=== PATIENT | female | born 1935 | race Caucasian/White ===

== ENCOUNTER → 2018-07-12 | Outpatient (REF) | payer MEDICARE ==
[2017-01-27 08:31] VITALS: BMI 27.3
[~2018-07-12] MED LIST: ACE3 PO; ACET500T68 PO; ALL100 PO; ASPI-1471 PO; ATEN-1 PO; ATEN-65 PO; CEP500 PO; CHOL500025 PO; CLO75 PO; DIV500 PO; DOC100 PO; DOCU-416 PO; ESTR42.5 VG; FOL1 PO; FUR20 PO; GABA-549 PO; GEMF600T91 PO; INDO25 PO; IRO150 PO; ISOS30TA54 PO; LEVO-85 PO; LEVO250T37; LEVO50 PO; LEVO75TA68 PO; LEVO88TA43 PO; LOR5 PO; MELA1TAB2 PO; MELA3TAB45 PO; MELO-150 PO; METH1TAB58 PO; MINE1TAB6 PO; MULT-1335 PO; MULT-977 PO; NIT100 PO; NITR-105 PO; OMEG1CAP36 PO; OXY39T TD; OXYC-865 PO; OXYGENHOME INH; PAN20 PO; PHEN-530 PO; PHENA200 PO; POLY119P23 PO; POTA-53 PO; PRAV10TA46 PO; SOLI10TA8 PO; UBID200C21 PO; VER100 PO; VITA150T2 PO; [UNRECOGNIZED DRUG - CODE] PO
== END ==
LOC: ZZSTITCHES 12:27
PROVIDERS: ATTEND Physician Assistant
DX: N39.0 Urinary tract infection, site not specified (principal)
CPT/HCPCS: 87088

== ENCOUNTER 2019-05-01 13:47 | Emergency (ER) | payer MEDICARE ==
[2017-01-27 08:31] VITALS: Wt 77.1 kg
[~2019-05-01 13:47] MED LIST changes: -other
[2019-05-01 14:02] LABS: PLATELET COUNT, AUTOMATED 104 K/uL (150-450)
[2019-05-01] MEDS ORDERED: METOPROLOL TART 5 MG/5 ML VIAL IVP ONE (14:05)
--- NOTE | 2019-05-01 14:19 | ER Report ---
History and Physical Time Seen By MD: 14:00 HPI/ROS CHIEF COMPLAINT: Weakness HISTORY OF PRESENT ILLNESS: 84-year-old female comes emergency Department today with complaint of weakness. Patient recently seen and diagnosed with UTI start antibiotics today she's demonstrated stenoses felt very weak and couldn't on arrival EMS noted her to be hypertensive with a blood pressures of 240/140. Patient denies any chest pain nausea vomiting to suggest doesn't feel well. Patient denies nausea vomiting diarrhea fever chills as have some increased ur inary frequency denies any head or neck trauma is not confuses at her baseline mentation patient has no chest pain this time no cough fever chills or additional complaints noted REVIEW OF SYSTEMS: Respiratory: No cough, no dyspnea. Cardiovascular: No chest pain, no palpitations. Gastrointestinal: No vomiting, no abdominal pain. Musculoskeletal: No back pain. Remainder of the 14 system rev: Yes Allergies: Coded Allergies: Sulfa (Sulfonamide Antibiotics) (Verified Allergy, Mild, HIVES, 01/26/17) Home Meds Active Scripts Levofloxacin 500 Mg Tab (LEVAQUIN 500 MG TAB) 500 Mg Tablet, 500 MG PO QDAY@21, #3 TAB Prov:MANJU BRAVO DO 01/28/17 Atenolol (ATENOLOL) 25 Mg Tablet, 12.5 MG PO DAILY, #30 TAB Prov:MANJU BRAVO DO 01/28/17 Reported Medications Gabapentin (GABAPENTIN) 300 Mg Capsule, 900 MG PO TID, CAPSULE 01/26/17 Melatonin/Pyridoxine Hcl (B6) (MELATONIN 10 MG TABLET) 1 Each Tab.mphase, 1 EACH PO QHS 01/26/17 Pravastatin Sodium (PRAVASTATIN SODIUM) 10 Mg Tablet, 10 MG PO QDAY 01/26/17 Oxygen (OXYGEN) Inha, 2 L INH PRN, L 02/26/16 Ascorbic Acid/Multivit-Min (Emergen-C 1,000 mg Packet) 1,000 Mg Effpowdpkt, 1000 MG PO PRN 02/26/16 Acetaminophen (TYLENOL EXTRA STRENGTH) 500 Mg Tablet, 500 MG PO Q4H PRN for PAIN/HEADACHE, TAB 02/26/16 [place]-3/Dha/Epa/Lut/Zeaxanthin (ADVANCED EYE HEALTH SOFTGEL) 1 Each Capsule, 1 EACH PO BID, CAPSULE 02/26/16 Cholecalciferol (Vitamin D3) (VITAMIN D3) 5,000 Unit Tablet, 5000 UNIT PO DAILY 02/26/16 Isosorbide Mononitrate (ISOSORBIDE MONONITRATE ER) 30 Mg Tab.er.24h, 30 MG PO DAILY 02/26/16 Ubidecarenone (CO Q-10) 200 Mg Capsule, 200 MG PO DAILY, CAPSULE 02/26/16 Vitamin B Complex & Vit C No.4 (SUPER B COMPLEX) 150 Mg Tablet, 150 MG PO DAILY 02/26/16 Levothyroxine Sodium (SYNTHROID) 88 Mcg Tablet, 88 MCG PO QDAY 02/26/16 Docusate Sodium (COLACE) 100 Mg Capsule, 100 MG PO BID, CAPSULE 09/14/13 Estrogens, Conjugated 0.625 Mg/Ml Vag Cream (PREMARIN 0.625 MG/ML VAGINAL CR) 42.5 Gm Cream.appl, 0 VG PRN 09/13/13 Divalproex Sodium (Depakote) 500 Mg Tabcr, 500 MG PO QAM 01/21/13 Folic Acid (Folic Acid) 1 Mg Tab, 1 MG PO QDAY, 0 Refills 01/13/11 Reviewed Nurses Notes: Yes Old Medical Records Reviewed: Yes Hx Smoking: Yes (SMOKED 1 TO 1 PPD , STARTED AGE 18 AND QUIT 2000(48 YEARS)) Smoking Status: Former Smoker Exposure to Second Hand Smoke?: No Hx Substance Use Disorder: No Hx Alcohol Use: No Constitutional Vital Sign - Last 24 Hours 05/01/19 05/01/19 05/01/19 05/01/19 14:00 14:01 14:04 14:12 Pulse 90 Resp 9 B/P (MAP) 158/123 (135) 162/116 (131) 169/110 (129) Pulse Ox 93 05/01/19 05/01/19 05/01/19 05/01/19 14:15 14:30 14:35 14:40 Pulse 70 Resp 17 B/P (MAP) 174/112 (132) 167/120 (136) 179/108 (131) 183/103 (129) Pulse Ox 92 05/01/19 05/01/19 05/01/19 05/01/19 14:45 14:50 14:55 15:00 Pulse 59 56 Resp 26 20 B/P (MAP) 172/98 (122) 170/100 (123) 172/98 (122) 172/97 (122) Pulse Ox 94 89 05/01/19 05/01/19 05/01/19 05/01/19 15:05 15:10 15:15 15:20 Pulse 64 Resp 13 B/P (MAP) 176/98 (124) 164/95 (118) 182/106 (131) 184/118 (140) Pulse Ox 96 05/01/19 05/01/19 05/01/19 05/01/19 15:25 15:26 15:28 15:35 Temp 100.0 Pulse ??? 81 Resp 20 B/P (MAP) ???/??? (1665) 241/105 ???/??? (1665) Pulse Ox 90 O2 Delivery Room Air O2 Flow Rate 1.0 05/01/19 05/01/19 05/01/19 05/01/19 15:40 15:45 15:50 15:55 Pulse 58 Resp 18 B/P (MAP) ???/??? (1665) 198/103 (134) 192/107 (135) 190/108 (135) Pulse Ox 92 05/01/19 05/01/19 05/01/19 05/01/19 16:00 16:05 16:10 16:15 B/P (MAP) 182/106 (131) 187/113 (137) 190/106 (134) 191/112 (138) 05/01/19 05/01/19 16:20 16:25 Pulse 60 Resp 18 B/P (MAP) 191/101 (131) 205/112 (143) Pulse Ox 92 Physical Exam General Appearance: The patient is alert, has no immediate need for airway protection and no current signs of toxicity. [ ] Eyes: Pupils equal and round no injection. Respiratory: Chest is non tender, lungs are clear to auscultation. Cardiac: regular rate and rhythm [ ] Gastrointestinal: Abdomen is soft and non tender, no masses, bowel sounds normal. Musculoskeletal: Neck: Neck is supple and non tender. Extremities have full range of motion and are non tender. Skin: No rashes or lesions. [ ] DIFFERENTIAL DIAGNOSIS: After history and physical exam differential diagnosis was considered for UTI urosepsis myocardial infarction cardiac myopathy CHF COPD Medical Decision Making Data Points Result Diagram: 05/01/19 1340 05/01/19 1340 Laboratory Hematology Test 05/01/19 00:00 05/01/19 13:40 05/01/19 15:21 05/01/19 16:27 Lactate 2.0 mmol/L (0.7-2.1) Red Blood Count 5.26 M/uL (4.17-5.56) Mean Corpuscular Volume 92.1 fL (80.0-96.0) Mean Corpuscular Hemoglobin 30.7 pg (26.0-33.0) Mean Corpuscular Hemoglobin Concent 33.3 g/dL (32.0-36.0) Red Cell Distribution Width 14.3 % (11.5-14.5) Mean Platelet Volume 8.4 fL (7.2-11.1) Neutrophils (%) (Auto) 61.8 % (39.4-72.5) Lymphocytes (%) (Auto) 15.0 % (17.6-49.6) Monocytes (%) (Auto) 22.2 % (4.1-12.4) Eosinophils (%) (Auto) 0.3 % (0.4-6.7) Basophils (%) (Auto) 0.7 % (0.3-1.4) Nucleated RBC Relative Count (auto) 0.0 /100WBC Neutrophils # (Auto) 3.9 K/uL (2.0-7.4) Lymphocytes # (Auto) 1.0 K/uL (1.3-3.6) Monocytes # (Auto) 1.4 K/uL (0.3-1.0) Eosinophils # (Auto) 0.0 K/uL (0.0-0.5) Basophils # (Auto) 0.0 K/uL (0.0-0.1) Nucleated RBC Absolute Count (auto) 0.00 K/uL D-Dimer Quantitative (PE/DVT) 1.55 ug/ml (0-0.50) Sodium Level 141 mmol/L (137-145) Potassium Level 3.7 mmol/L (3.5-5.0) Chloride Level 106 mmol/L (98-107) Carbon Dioxide Level 25 mmol/L (22-31) Blood Urea Nitrogen 23 mg/dl (7-18) Creatinine 0.80 mg/dl (0.52-1.04) Glomerular Filtration Rate Calc > 60.0 Random Glucose 123 mg/dl (75-110) Calcium Level 9.3 mg/dl (8.4-10.2) Total Bilirubin 0.7 mg/dl (0.2-1.3) Aspartate Amino Transf (AST/SGOT) 40 U/L (0-35) Alanine Aminotransferase (ALT/SGPT) 36 U/L (0-56) Alkaline Phosphatase 95 U/L (0-126) B-Type Natriuretic Peptide 758 pg/ml (0-100) Total Protein 7.2 g/dl (6.3-8.2) Albumin 3.6 g/dl (3.5-5.0) Urine Color Yellow Urine Clarity Slightly-cloudy Urine pH 6.0 pH (4.8-9.5) Urine Specific [place] 1.025 Urine Protein 100 mg/dL (NEGATIVE) Urine Glucose (UA) Negative mg/dL (NEGATIVE) Urine Ketones >=80 mg/dL (NEGATIVE) Urine Blood Moderate (NEGATIVE) Urine Nitrite Positive (NEGATIVE) Urine Bilirubin Moderate (NEGATIVE) Urine Urobilinogen 0.2 mg/dL (0.2-1.9) Urine Leukocyte Esterase Moderate (NEGATIVE) Urine RBC 3 /HPF (0-2/HPF) Urine WBC 10 /HPF (0-5/HPF) Urine Squamous Epithelial Cells Many /LPF (NONE-FEW) Urine Bacteria Negative /HPF (NONE-FEW) Urine Mucus None /HPF (NONE-FEW) Troponin I 0.020 ng/ml Chemistry Test 05/01/19 00:00 05/01/19 13:40 05/01/19 15:21 05/01/19 16:27 Lactate 2.0 mmol/L (0.7-2.1) White Blood Count 6.3 k/uL (4.5-11.0) Red Blood Count 5.26 M/uL (4.17-5.56) Hemoglobin 16.1 g/dL (12.0-16.0) Hematocrit 48.5 % (34.0-47.0) Mean Corpuscular Volume 92.1 fL (80.0-96.0) Mean Corpuscular Hemoglobin 30.7 pg (26.0-33.0) Mean Corpuscular Hemoglobin Concent 33.3 g/dL (32.0-36.0) Red Cell Distribution Width 14.3 % (11.5-14.5) Platelet Count 104 K/uL (150-450) Mean Platelet Volume 8.4 fL (7.2-11.1) Neutrophils (%) (Auto) 61.8 % (39.4-72.5) Lymphocytes (%) (Auto) 15.0 % (17.6-49.6) Monocytes (%) (Auto) 22.2 % (4.1-12.4) Eosinophils (%) (Auto) 0.3 % (0.4-6.7) Basophils (%) (Auto) 0.7 % (0.3-1.4) Nucleated RBC Relative Count (auto) 0.0 /100WBC Neutrophils # (Auto) 3.9 K/uL (2.0-7.4) Lymphocytes # (Auto) 1.0 K/uL (1.3-3.6) Monocytes # (Auto) 1.4 K/uL (0.3-1.0) Eosinophils # (Auto) 0.0 K/uL (0.0-0.5) Basophils # (Auto) 0.0 K/uL (0.0-0.1) Nucleated RBC Absolute Count (auto) 0.00 K/uL D-Dimer Quantitative (PE/DVT) 1.55 ug/ml (0-0.50) Glomerular Filtration Rate Calc > 60.0 Calcium Level 9.3 mg/dl (8.4-10.2) Total Bilirubin 0.7 mg/dl (0.2-1.3) Aspartate Amino Transf (AST/SGOT) 40 U/L (0-35) Alanine Aminotransferase (ALT/SGPT) 36 U/L (0-56) Alkaline Phosphatase 95 U/L (0-126) B-Type Natriuretic Peptide 758 pg/ml (0-100) Total Protein 7.2 g/dl (6.3-8.2) Albumin 3.6 g/dl (3.5-5.0) Urine Color Yellow Urine Clarity Slightly-cloudy Urine pH 6.0 pH (4.8-9.5) Urine Specific [place] 1.025 Urine Protein 100 mg/dL (NEGATIVE) Urine Glucose (UA) Negative mg/dL (NEGATIVE) Urine Ketones >=80 mg/dL (NEGATIVE) Urine Blood Moderate (NEGATIVE) Urine Nitrite Positive (NEGATIVE) Urine Bilirubin Moderate (NEGATIVE) Urine Urobilinogen 0.2 mg/dL (0.2-1.9) Urine Leukocyte Esterase Moderate (NEGATIVE) Urine RBC 3 /HPF (0-2/HPF) Urine WBC 10 /HPF (0-5/HPF) Urine Squamous Epithelial Cells Many /LPF (NONE-FEW) Urine Bacteria Negative /HPF (NONE-FEW) Urine Mucus None /HPF (NONE-FEW) Troponin I 0.020 ng/ml Coagulation Test 05/01/19 13:40 D-Dimer Quantitative (PE/DVT) 1.55 ug/ml Urinalysis Test 05/01/19 15:21 Urine Color Yellow Urine Clarity Slightly-cloudy Urine pH 6.0 pH (4.8-9.5) Urine Specific [place] 1.025 Urine Protein 100 mg/dL (NEGATIVE) Urine Glucose (UA) Negative mg/dL (NEGATIVE) Urine Ketones >=80 mg/dL (NEGATIVE) Urine Blood Moderate (NEGATIVE) Urine Nitrite Positive (NEGATIVE) Urine Bilirubin Moderate (NEGATIVE) Urine Urobilinogen 0.2 mg/dL (0.2-1.9) Urine Leukocyte Esterase Moderate (NEGATIVE) Urine RBC 3 /HPF (0-2/HPF) Urine WBC 10 /HPF (0-5/HPF) Urine Squamous Epithelial Cells Many /LPF (NONE-FEW) Urine Bacteria Negative /HPF (NONE-FEW) Urine Mucus None /HPF (NONE-FEW) ED Course/Re-evaluation ED Course 84-year-old female here with hypertensive emergency troponin markers are elevated EKG showed inferior and precordial ST depressions consistent with probable and STEMI I will send her to [facility] for definitive cardiology care Decision to Disposition Date: May 01, 2019 Decision to Disposition Time: 17:17 Depart Departure Latest Vital Signs Vital Signs Date Time Temp Pulse Resp B/P (MAP) Pulse Ox O2 Delivery O2 Flow Rate FiO2 05/01/19 16:25 60 18 205/112 (143) 92 05/01/19 15:28 1.0 05/01/19 15:26 100.0 Room Air Impression: Primary Impression: Non-STEMI (non-ST elevated myocardial infarction) Additional Impression: Hypertensive emergency Condition: Improved Disposition: [facility] TO [facility] Referrals: SUARJ TOMLINSON MD (PCP) Problem Qualifiers ZAIN SHORE MD May 01, 2019 14:19
--- NOTE | 2019-05-01 14:30 | EKG ---
[facility] PATIENT NAME: ESTELLA IRELAND : [id number] MR: [id number] V: [id number] EXAM DATE: ORDERING PHYSICIAN: ZAIN SHORE TECHNOLOGIST: VIVIAN Grimes Reason : CP Blood Pressure : / mmHG Vent. Rate : 099 BPM Atrial Rate : 099 BPM P-R Int : 136 ms QRS Dur : 128 ms QT Int : 368 ms P-R-T Axes : 062 028 086 degrees QTc Int : 472 ms Sinus rhythm with premature atrial complexes Biatrial enlargement Left bundle branch block Accentuated ST depression in the inferolateral leads Abnormal ECG Confirmed by SERA HWANG ([id number]) on 05/01/2019 4:22:59 PM Referred By: MONE Confirmed By:SERA HWANG
--- NOTE | 2019-05-01 15:06 | RADIOLOGY IMAGING REPORT ---
FACILITY: [facility] - [place] PATIENT NAME: Cecilia Craig : 1935 MR: [id number] V: [id number] EXAM DATE: ORDERING PHYSICIAN: ZAIN SHORE TECHNOLOGIST: Location: [facility] Patient: Cecilia Craig : 1935 Visit/Account:[id number] Date of Sevice: 05/01/2019 EXAMINATION: PA and Lateral Chest 05/01/2019 1:48 PM HISTORY: sob COMPARISON: 09/21/2014 FINDINGS: Cardiomediastinal contours: Stable heart size. Tortuosity of the aorta again shown. Lungs and pleura: Lungs are mildly hyper voluminous. Vasculature is unchanged. No parenchymal infil trate or consolidation. Pleural spaces appear clear. Densities over the lung bases due to costal ca rtilage. Bones/soft tissues: Scoliotic spinal curvature. Bony degenerative changes. IMPRESSION: No acute cardiopulmonary abnormality. Report Dictated By: Da Holbrook MD at 05/01/2019 2:45 PM Report E-Signed By: Da Holbrook MD at 05/01/2019 3:01 PM [id number]
[2019-05-01] MEDS ORDERED: cloNIDine HCL 0.1 MG TAB PO ONE (16:30)
--- NOTE | 2019-05-01 16:43 | RADIOLOGY IMAGING REPORT ---
FACILITY: [facility] - [place] PATIENT NAME: Cecilia Craig : 1935 MR: [id number] V: [id number] EXAM DATE: ORDERING PHYSICIAN: ZAIN SHORE TECHNOLOGIST: Location: [facility] Patient: Cecilia Craig : 1935 Visit/Account:[id number] Date of Sevice: 05/01/2019 EXAMINATION: CTA of the chest with IV contrast HISTORY: Shortness of breath. Mid back pain. Malaise. TECHNIQUE: Pulmonary embolus protocol - Thin axial CT images of the chest were obtained with IV con trast during maximal pulmonary arterial opacification. Reconstruction of the source data includes mul tiplanar 2D coronal and sagittal reconstructed images, and 3D coronal and sagittal MIP images. Repres entative images have been stored on PACS. One of the following dose optimization techniques was utilized in the performance of this exam: Autom ated exposure control; adjustment of the mA and/or kV according to the patient's size; or use of an i terative reconstruction technique. Specific details can be referenced in the facility's radiology C T exam operational policy. Contrast: 75 mL of IV [id number]. COMPARISON: None. FINDINGS: Pulmonary arteries: The pulmonary arteries are well opacified, without suspicious filling defect. Heart, aorta, and great vessels: Mild ectasia of the ascending thoracic aorta measuring 3.8 cm. The thoracic aorta is mildly tortuous. Vascular calcifications including coronary artery calcifications. Mild cardiac enlargement. No pericardial effusion. Lungs and pleura: Mild scarring or atelectasis at the lung bases. No suspicious focal consolidation. No pleural effusion or pneumothorax. The central airways are patent. Mediastinum and haritha: Negative. Visualized upper abdomen: Cholelithiasis with multiple small stones layering in the dependent gallbl adder. Scattered colonic diverticulosis along the visualized splenic flexure of the colon. Partially imaged [employer] shunt catheter tubing in the right abdomen. Chest wall: [employer] shunt catheter tracks along the soft tissues of the anterior right chest wall. Bones: Mild thoracolumbar scoliosis with chronic multilevel degenerative changes throughout the spin e. No acute osseous findings. IMPRESSION: 1. No evidence of pulmonary embolism. 2. No other acute findings in the chest. Mild scarring or atelectasis at the lung bases. 3. Cholelithiasis. Report Dictated By: Blayne Bush MD at 05/01/2019 4:28 PM Report E-Signed By: Blayne Bush MD at 05/01/2019 4:38 PM WSN:[id number]
[2019-05-01 17:20] VITALS: BP 196/121
== END 2019-05-01 18:06 | disposition short-term general hospital (02) ==
LOC: ER 13:52
DX: I21.4 Non-ST elevation (NSTEMI) myocardial infarction (principal)
CPT/HCPCS: 71046; 71275; 81001; 83605; 83880; 84484; 85025; 85379; 87040; 87088; 93005; 96374; 99285; A4353; A9270; 82040; 82247; 82310; 82374; 82435; 82565; 82947; 84075; 84132; 84155; 84295; 84450; 84460; 84520

== ENCOUNTER → 2019-05-01 | Outpatient (CLI) | payer MEDICARE ==
[2017-01-27 08:31] VITALS: BMI 27.3
[~2019-05-01] MED LIST changes: +other
== END ==
LOC: AMB 17:56
PROVIDERS: ATTEND Nurse Practitioner
DX: I21.4 Non-ST elevation (NSTEMI) myocardial infarction (principal)

== ENCOUNTER → 2019-05-01 | Outpatient (CLI) | payer MEDICARE ==
[2017-01-27 08:31] VITALS: BMI 27.3
== END ==
LOC: AMB 13:13
PROVIDERS: ATTEND Nurse Practitioner
DX: R53.83 Other fatigue (principal); I49.9 Cardiac arrhythmia, unspecified
CPT/HCPCS: A0425; A0427

== ENCOUNTER 2019-05-06 13:16 | Emergency (ER) | payer MEDICARE ==
[2017-01-27 08:31] VITALS: Wt 69.9 kg
[~2019-05-06 13:16] MED LIST changes: -other
--- NOTE | 2019-05-06 13:19 | ER Report ---
History and Physical Time Seen By MD: 13:18 HPI/ROS CHIEF COMPLAINT: Not feeling well HISTORY OF PRESENT ILLNESS: Dyspnea. Female who presents to the emergency department via EMS for "not feeling well". Patient was sent to [facility] [place] 5 days ago for an STEMI. Patient's states they just ran some tests, no interventions, her son who is at the bedside states that she was released prematurely, spine home for a couple of days and has not been feeling well, patient states that she just does not feel well. She denies chest pain or shortness of breath, she does feel fatigued she also states that she has not had a bowel movement since she was in the hospital. She also states that she is currently being treated for a urinary tract infection she is currently taking Levaquin. No headaches or rashes or fevers although she states that she did feel warm today. REVIEW OF SYSTEMS: Constitutional: As above. Eyes: No discharge. ENT: No sore throat. Cardiovascular: As above. Respiratory: No cough, no shortness of breath. Gastrointestinal: No abdominal pain, no vomiting. Genitourinary: As above. Musculoskeletal: No back pain. Skin: No rashes. Neurological: No headache. Allergies: Coded Allergies: Sulfa (Sulfonamide Antibiotics) (Verified Allergy, Mild, HIVES, 01/26/17) Home Meds Active Scripts [other] No Conflict Check Patient's Primary Care Provider: Dr. vIonne Aguilar, Institutional Provider conducted the [id number] encounter. Electronic Undersigning Physician Certifies Home Health. I certify that the patient has been under my care and that I had a [id number] encounter that meets the physician wgqa-ml-sapi encounter requirements with this patient. This patient is home-bound due to safety issues and continues to require assistance with ADL's. I certify that based on my findings, that Nursing, Aides and the following Home Health services are medically necessary: Prov:LITO BALES SHIPPING AND RECEIVING SPECIALIST- 05/06/19 Levofloxacin 500 Mg Tab (LEVAQUIN 500 MG TAB) 500 Mg Tablet, 500 MG PO QDAY@21, #3 TAB Prov:MANJU BRAVO DO 01/28/17 Atenolol (ATENOLOL) 25 Mg Tablet, 12.5 MG PO DAILY, #30 TAB Prov:MANJU BRAVO DO 01/28/17 Reported Medications Gabapentin (GABAPENTIN) 300 Mg Capsule, 900 MG PO TID, CAPSULE 01/26/17 Melatonin/Pyridoxine Hcl (B6) (MELATONIN 10 MG TABLET) 1 Each Tab.mphase, 1 EACH PO QHS 01/26/17 Pravastatin Sodium (PRAVASTATIN SODIUM) 10 Mg Tablet, 10 MG PO QDAY 01/26/17 Oxygen (OXYGEN) Inha, 2 L INH PRN, L 02/26/16 Ascorbic Acid/Multivit-Min (Emergen-C 1,000 mg Packet) 1,000 Mg Effpowdpkt, 1000 MG PO PRN 02/26/16 Acetaminophen (TYLENOL EXTRA STRENGTH) 500 Mg Tablet, 500 MG PO Q4H PRN for PAIN/HEADACHE, TAB 02/26/16 [place]-3/Dha/Epa/Lut/Zeaxanthin (ADVANCED EYE HEALTH SOFTGEL) 1 Each Capsule, 1 EACH PO BID, CAPSULE 02/26/16 Cholecalciferol (Vitamin D3) (VITAMIN D3) 5,000 Unit Tablet, 5000 UNIT PO DAILY 02/26/16 Isosorbide Mononitrate (ISOSORBIDE MONONITRATE ER) 30 Mg Tab.er.24h, 30 MG PO DA KATIE 02/26/16 Ubidecarenone (CO Q-10) 200 Mg Capsule, 200 MG PO DAILY, CAPSULE 02/26/16 Vitamin B Complex & Vit C No.4 (SUPER B COMPLEX) 150 Mg Tablet, 150 MG PO DAILY 02/26/16 Levothyroxine Sodium (SYNTHROID) 88 Mcg Tablet, 88 MCG PO QDAY 02/26/16 Docusate Sodium (COLACE) 100 Mg Capsule, 100 MG PO BID, CAPSULE 09/14/13 Estrogens, Conjugated 0.625 Mg/Ml Vag Cream (PREMARIN 0.625 MG/ML VAGINAL CR) 42.5 Gm Cream.appl, 0 VG PRN 09/13/13 Divalproex Sodium (Depakote) 500 Mg Tabcr, 500 MG PO QAM 01/21/13 Folic Acid (Folic Acid) 1 Mg Tab, 1 MG PO QDAY, 0 Refills 01/13/11 Past Medical/Surgical History The patient has a past medical and surgical history of hydrocephalus, TIAs, migraines, myocardial infarction, stents placed, irregular heartbeat, hypertension, hypercholesterolemia, spoke to use oxygen 24 hours a day, colonoscopy, hemorrhoidectomy hepatitis, jaundice, urinary urgency, UTIs, no pus, arthritis, partial dentures, macular degeneration, wears glasses, hypothyroidism, shingles, COATER SMOKING PIPE shunt, appendectomy, cystoscopy, tubal ligation, foot surgery, hip surgery, right hip total replacement. Reviewed Nurses Notes: Yes Hx Smoking: Yes (SMOKED 1/4 TO 1/2 PPD , STARTED AGE 18 AND QUIT 2000(48 YEARS)) Smoking Status: Former Smoker Exposure to Second Hand Smoke?: No Hx Substance Use Disorder: No Hx Alcohol Use: No Constitutional Vital Sign - Last 24 Hours 05/06/19 05/06/19 05/06/19 05/06/19 13:16 13:18 13:19 13:26 Temp 98.8 Pulse 82 92 Resp 18 B/P (MAP) 142/109 142/109 (120) Pulse Ox 88 O2 Delivery Room Air O2 Flow Rate 1.0 05/06/19 05/06/19 05/06/19 05/06/19 13:30 13:36 13:56 14:00 Pulse 85 86 Resp 12 17 B/P (MAP) 149/89 (109) 140/90 (107) Pulse Ox 94 94 05/06/19 05/06/19 05/06/19 05/06/19 14:16 14:21 14:30 14:41 Pulse 81 78 78 Resp 13 28 39 B/P (MAP) 147/91 (109) Pulse Ox 94 93 94 05/06/19 05/06/19 05/06/19 05/06/19 15:00 15:01 15:21 15:30 Pulse 77 74 Resp 22 19 B/P (MAP) 135/95 (108) 140/94 (109) Pulse Ox 95 96 05/06/19 05/06/19 05/06/19 05/06/19 15:41 16:00 16:01 16:02 Pulse 77 72 78 Resp 36 16 17 B/P (MAP) 150/96 (114) Pulse Ox 96 97 97 05/06/19 05/06/19 05/06/19 05/06/19 16:22 16:30 16:42 18:28 Pulse 73 81 85 Resp 16 25 16 B/P (MAP) 141/88 (105) 148/88 (108) Pulse Ox 97 95 92 O2 Delivery Nasal Cannula O2 Flow Rate 2 Physical Exam General Appearance: The patient is alert, has no immediate need for airway protection and no signs of toxicity. Eyes: Pupils equal and round no pallor or injection. ENT, Mouth: Mucous membranes are moist. Respiratory: There are no retractions, lungs are clear to auscultation. Cardiovascular: Regular rate and rhythm. Faint systolic murmur, no clicks or rubs. Gastrointestinal: Abdomen is soft and non tender, no masses, bowel sounds normal. Neurological: Alert and oriented 4. Moving all extremities. Following all commands. No focal neuro deficits. Skin: Warm and dry, no rashes. Musculoskeletal: Neck is supple non tender. Extremities are nontender, nonswollen and have full range of motion. DIFFERENTIAL DIAGNOSIS: After history and physical exam differential diagnosis was considered for an STEMI, myocardial infarction, sepsis, urinary tract infection, urosepsis, constipation. Medical Decision Making Data Points Result Diagram: 05/06/19 1344 05/06/19 1344 Laboratory Hematology Test 05/06/19 13:44 05/06/19 14:20 Red Blood Count 4.93 M/uL (4.17-5.56) Mean Corpuscular Volume 92.3 fL (80.0-96.0) Mean Corpuscular Hemoglobin 30.8 pg (26.0-33.0) Mean Corpuscular Hemoglobin Concent 33.4 g/dL (32.0-36.0) Red Cell Distribution Width 13.8 % (11.5-14.5) Mean Platelet Volume 8.8 fL (7.2-11.1) Neutrophils (%) (Auto) 74.6 % (39.4-72.5) Lymphocytes (%) (Auto) 13.0 % (17.6-49.6) Monocytes (%) (Auto) 11.5 % (4.1-12.4) Eosinophils (%) (Auto) 0.4 % (0.4-6.7) Basophils (%) (Auto) 0.5 % (0.3-1.4) Nucleated RBC Relative Count (auto) 0.0 /100WBC Neutrophils # (Auto) 5.0 K/uL (2.0-7.4) Lymphocytes # (Auto) 0.9 K/uL (1.3-3.6) Monocytes # (Auto) 0.8 K/uL (0.3-1.0) Eosinophils # (Auto) 0.0 K/uL (0.0-0.5) Basophils # (Auto) 0.0 K/uL (0.0-0.1) Nucleated RBC Absolute Count (auto) 0.00 K/uL Prothrombin Time 14.7 seconds (12.0-14.4) Prothromb Time International Ratio 1.14 Activated Partial Thromboplast Time 29 seconds (23-35) Sodium Level 143 mmol/L (137-145) Potassium Level 3.7 mmol/L (3.5-5.0) Chloride Level 108 mmol/L (98-107) Carbon Dioxide Level 26 mmol/L (22-31) Blood Urea Nitrogen 21 mg/dl (7-18) Creatinine 0.90 mg/dl (0.52-1.04) Glomerular Filtration Rate Calc 59.7 Random Glucose 127 mg/dl (75-110) Calcium Level 9.5 mg/dl (8.4-10.2) Total Bilirubin 0.6 mg/dl (0.2-1.3) Aspartate Amino Transf (AST/SGOT) 32 U/L (0-35) Alanine Aminotransferase (ALT/SGPT) 34 U/L (0-56) Alkaline Phosphatase 62 U/L (0-126) Troponin I < 0.012 ng/ml Total Protein 6.8 g/dl (6.3-8.2) Albumin 3.5 g/dl (3.5-5.0) Urine Color Jazmin Urine Clarity Slightly-cloudy Urine pH 5.0 pH (4.8-9.5) Urine Specific [place] 1.025 Urine Protein 30 mg/dL (NEGATIVE) Urine Glucose (UA) Negative mg/dL (NEGATIVE) Urine Ketones Trace mg/dL (NEGATIVE) Urine Blood Moderate (NEGATIVE) Urine Nitrite Negative (NEGATIVE) Urine Bilirubin Negative (NEGATIVE) Urine Urobilinogen 0.2 mg/dL (0.2-1.9) Urine Leukocyte Esterase Trace (NEGATIVE) Urine RBC 81 /HPF (0-2/HPF) Urine WBC 37 /HPF (0-5/HPF) Urine Squamous Epithelial Cells Many /LPF (NONE-FEW) Urine Transitional Epithelial Cells Moderate /LPF (NONE-FEW) Urine Bacteria Few /HPF (NONE-FEW) Urine Mucus Few /HPF (NONE-FEW) Chemistry Test 05/06/19 13:44 05/06/19 14:20 White Blood Count 6.8 k/uL (4.5-11.0) Red Blood Count 4.93 M/uL (4.17-5.56) Hemoglobin 15.2 g/dL (12.0-16.0) Hematocrit 45.5 % (34.0-47.0) Mean Corpuscular Volume 92.3 fL (80.0-96.0) Mean Corpuscular Hemoglobin 30.8 pg (26.0-33.0) Mean Corpuscular Hemoglobin Concent 33.4 g/dL (32.0-36.0) Red Cell Distribution Width 13.8 % (11.5-14.5) Platelet Count 188 K/uL (150-450) Mean Platelet Volume 8.8 fL (7.2-11.1) Neutrophils (%) (Auto) 74.6 % (39.4-72.5) Lymphocytes (%) (Auto) 13.0 % (17.6-49.6) Monocytes (%) (Auto) 11.5 % (4.1-12.4) Eosinophils (%) (Auto) 0.4 % (0.4-6.7) Basophils (%) (Auto) 0.5 % (0.3-1.4) Nucleated RBC Relative Count (auto) 0.0 /100WBC Neutrophils # (Auto) 5.0 K/uL (2.0-7.4) Lymphocytes # (Auto) 0.9 K/uL (1.3-3.6) Monocytes # (Auto) 0.8 K/uL (0.3-1.0) Eosinophils # (Auto) 0.0 K/uL (0.0-0.5) Basophils # (Auto) 0.0 K/uL (0.0-0.1) Nucleated RBC Absolute Count (auto) 0.00 K/uL Prothrombin Time 14.7 seconds (12.0-14.4) Prothromb Time International Ratio 1.14 Activated Partial Thromboplast Time 29 seconds (23-35) Glomerular Filtration Rate Calc 59.7 Calcium Level 9.5 mg/dl (8.4-10.2) Total Bilirubin 0.6 mg/dl (0.2-1.3) Aspartate Amino Transf (AST/SGOT) 32 U/L (0-35) Alanine Aminotransferase (ALT/SGPT) 34 U/L (0-56) Alkaline Phosphatase 62 U/L (0-126) Troponin I < 0.012 ng/ml Total Protein 6.8 g/dl (6.3-8.2) Albumin 3.5 g/dl (3.5-5.0) Urine Color Jazmin Urine Clarity Slightly-cloudy Urine pH 5.0 pH (4.8-9.5) Urine Specific [place] 1.025 Urine Protein 30 mg/dL (NEGATIVE) Urine Glucose (UA) Negative mg/dL (NEGATIVE) Urine Ketones Trace mg/dL (NEGATIVE) Urine Blood Moderate (NEGATIVE) Urine Nitrite Negative (NEGATIVE) Urine Bilirubin Negative (NEGATIVE) Urine Urobilinogen 0.2 mg/dL (0.2-1.9) Urine Leukocyte Esterase Trace (NEGATIVE) Urine RBC 81 /HPF (0-2/HPF) Urine WBC 37 /HPF (0-5/HPF) Urine Squamous Epithelial Cells Many /LPF (NONE-FEW) Urine Transitional Epithelial Cells Moderate /LPF (NONE-FEW) Urine Bacteria Few /HPF (NONE-FEW) Urine Mucus Few /HPF (NONE-FEW) Coagulation Test 05/06/19 13:44 Prothrombin Time 14.7 seconds Prothromb Time International Ratio 1.14 Activated Partial Thromboplast Time 29 seconds Urinalysis Test 05/06/19 14:20 Urine Color Jazmin Urine Clarity Slightly-cloudy Urine pH 5.0 pH (4.8-9.5) Urine Specific [place] 1.025 Urine Protein 30 mg/dL (NEGATIVE) Urine Glucose (UA) Negative mg/dL (NEGATIVE) Urine Ketones Trace mg/dL (NEGATIVE) Urine Blood Moderate (NEGATIVE) Urine Nitrite Negative (NEGATIVE) Urine Bilirubin Negative (NEGATIVE) Urine Urobilinogen 0.2 mg/dL (0.2-1.9) Urine Leukocyte Esterase Trace (NEGATIVE) Urine RBC 81 /HPF (0-2/HPF) Urine WBC 37 /HPF (0-5/HPF) Urine Squamous Epithelial Cells Many /LPF (NONE-FEW) Urine Transitional Epithelial Cells Moderate /LPF (NONE-FEW) Urine Bacteria Few /HPF (NONE-FEW) Urine Mucus Few /HPF (NONE-FEW) EKG/Imaging EKG Interpretation 12 lead EKG: Time of EKG 1355. Rhythm: Sinus rhythm, ventricular rate 79 BPM. [place]: Left axis deviation. QRS: Left bundle branch block. ST segments: Left bundle branch block, no ST depression on current EKG. Improved EKG when compared to the 05/01/2019 EKG the depression in lead 3, weight 2 aVF has resolved. Imaging PATIENT NAME: Cecilia Craig : 1935 MR: [id number] V: [id number] EXAM DATE: ORDERING PHYSICIAN: LITO BALES TECHNOLOGIST: Location: [facility] [place] Patient: Cecilia Craig : 1935 Visit/Account:[id number] Date of Sevice: 05/06/2019 KUB SINGLE VIEW ABDOMEN, CHEST SINGLE AP HISTORY: Not feeling well. History of recent non-STEMI cardiac event. COMPARISON: Chest x-ray May 01, 2019. CT abdomen pelvis May 01, 2019. FINDINGS: Cardiomediastinal contours: The heart is enlarged. Lungs and pleura: There is hyperinflation of the lungs but no definitive pleural effusions are identified. There is no congestive heart failure. There is prominence the central pulmonary vessels. Bones/soft tissues: Diffuse osteopenia without findings of a fracture. ABDOMEN: There is a fair amount of fecal material throughout mildly dilated loops of colon. There is gas and feces in the rectum. The findings could represent mild constipation. Bilateral hip replacements are identified. There is diffuse osteopenia but no fracture is seen. Discogenic degenerative changes throughout the lumbar spine. Right upper quadrant: There is a calcified gallstone in the right upper quadrant . This was noted on the previous CT scan. IMPRESSION: 1. Cardiomegaly with hyperinflation of the lungs and prominence the central pulmonary vessels. No findings of an infiltrate. 2. There is a fair amount of fecal chest throughout the colon. This raises the possibility of constipation. 3. Cholelithiasis. 4. Osteopenia without findings of an acute fracture. Bilateral total hip replacements. Report Dictated By: Sujit Elizabeth MD at 05/06/2019 2:11 PM Report E-Signed By: Sujit Elizabeth MD at 05/06/2019 2:16 PM WSN:[id number] ED Course/Re-evaluation Clinical Indication for ER IV: IV Access ED Course The patient was admitted to room. A history and physical obtained. Differential diagnoses were considered. An IV was started. A CBC, CMP and troponin were obtained. Laboratory studies unremarkable, negative troponin. EKG showing significant improvement from the patient's EKG 5 days ago. KUB showing constipation, no acute findings noted on chest x-ray. Urine showing continued urinary tract infection, we'll continue the patient on the Levaquin that she was prescribed. Urine sent for culture. I did speak with the hospitalist, Dr. diane gar lets he still, as the patient's laboratory studies, EKG are improving, no other acute findings other than a urinary tract infection were identified, and admission is not possible at this time. We are doing only can to assist her with home health care and she was given a prescripti trying to assist patient with setting up home health care, I have written an order for this. I did review this with the patient, though she is disappointed that she will not be admitted the hospital she does understand. I have written an order for home health, [facility] has been contacted, notes been faxed along with the order of her we did not have a response today, the patient will go home, her son will assist her this evening, and [facility] will hopefully contact her tomorrow, she will follow up with Dr. Aguilar. She'll also return to the ER for any other concerns or worsening symptoms. Patient exposed understanding Decision to Disposition Date: May 06, 2019 Decision to Disposition Time: 18:05 Depart Departure Latest Vital Signs Vital Signs Date Time Temp Pulse Resp B/P (MAP) Pulse Ox O2 Delivery O2 Flow Rate FiO2 05/06/19 18:28 85 16 148/88 (108) 92 Nasal Cannula 2 05/06/19 13:18 98.8 Impression: Primary Impression: Weakness Additional Impressions: UTI (urinary tract infection) Constipation Status post non-ST elevation myocardial infarction (NSTEMI) Condition: Improved Disposition: HOME OR SELF-CARE Referrals: IVONNE AGUILAR DO 5 Days New Scripts [other] No Conflict Check Patient's Primary Care Provider: Dr. Ivonne Aguilar DO Institutional Provider conducted the [id number] encounter. Electronic Undersigning Physician Certifies Home Health. I certify that the patient has been under my care and that I had a [id number] encounter that meets the physician [id number] encounter requirements with this patient. This patient is home-bound due to safety issues and continues to require assistance with ADL's. I certify that based on my findings, that Nursing, Aides and the following Home Health services are medically necessary: Prov: LITO BALES-SHALOM 05/06/19 Patient Instructions: Constipation (ED), Urinary Traction Infection in Older Adults (ED), Weakness (ED) Additional Instructions: Please continue taking the antibiotics for the urinary tract infection. Drink the bottle of MagCitrate when you get home, you can also add prune juice while drinking the MagCitrate. start taking MiriLax 1/2 cap a day for the next 5-7 days to help with stooling. Drink plenty of water. Get plenty of rest. Follow up with Dr. Jeff Miller. Home health order has been written, please be sure to give them the order. Return to the ED for any other concerns or worsening symptoms. Problem Qualifiers Additional Impressions: UTI (urinary tract infection) Urinary tract infection type: acute cystitis Hematuria presence: with hematuria Qualified Codes: N30.01 - Acute cystitis with hematuria Constipation Constipation type: slow transit constipation Qualified Codes: K59.01 - Slow transit constipation LITO BALES-BC May 06, 2019 13:19
--- NOTE | 2019-05-06 14:22 | RADIOLOGY IMAGING REPORT ---
FACILITY: [facility] PATIENT NAME: Cecilia Craig : 1935 MR: [id number] V: [id number] EXAM DATE: ORDERING PHYSICIAN: LITO BALES TECHNOLOGIST: Location: [facility] [place] Patient: Cecilia Craig : 1935 Visit/Account:[id number] Date of Sevice: 05/06/2019 KUB SINGLE VIEW ABDOMEN, CHEST SINGLE AP HISTORY: Not feeling well. History of recent non-STEMI cardiac event. COMPARISON: Chest x-ray May 01, 2019. CT abdomen pelvis May 01, 2019. FINDINGS: Cardiomediastinal contours: The heart is enlarged. Lungs and pleura: There is hyperinflation of the lungs but no definitive pleural effusions are identi fied. There is no congestive heart failure. There is prominence the central pulmonary vessels. Bones/soft tissues: Diffuse osteopenia without findings of a fracture. ABDOMEN: There is a fair amount of fecal material throughout mildly dilated loops of colon. There is gas and feces in the rectum. The findings could represent mild constipation. Bilateral hip replacements are identified. There is diffuse osteopenia but no fracture is seen. Disco genic degenerative changes throughout the lumbar spine. Right upper quadrant: There is a calcified gallstone in the right upper quadrant. This was noted on t he previous CT scan. IMPRESSION: 1. Cardiomegaly with hyperinflation of the lungs and prominence the central pulmonary vessels. No fin dings of an infiltrate. 2. There is a fair amount of fecal chest throughout the colon. This raises the possibility of constip ation. 3. Cholelithiasis. 4. Osteopenia without findings of an acute fracture. Bilateral total hip replacements. Report Dictated By: Sujit Elizabeth MD at 05/06/2019 2:11 PM Report E-Signed By: Sujit Elizabeth MD at 05/06/2019 2:16 PM WSN:[id number]
--- NOTE | 2019-05-06 14:22 | RADIOLOGY IMAGING REPORT ---
FACILITY: [facility] PATIENT NAME: Cecilia Craig : 1935 MR: [id number] V: [id number] EXAM DATE: ORDERING PHYSICIAN: LITO BALES TECHNOLOGIST: Location: [facility] Patient: Cecilia Craig : 1935 Visit/Account:[id number] Date of Sevice: 05/06/2019 KUB SINGLE VIEW ABDOMEN, CHEST SINGLE AP HISTORY: Not feeling well. History of recent non-STEMI cardiac event. COMPARISON: Chest x-ray May 01, 2019. CT abdomen pelvis May 01, 2019. FINDINGS: Cardiomediastinal contours: The heart is enlarged. Lungs and pleura: There is hyperinflation of the lungs but no definitive pleural effusions are identi fied. There is no congestive heart failure. There is prominence the central pulmonary vessels. Bones/soft tissues: Diffuse osteopenia without findings of a fracture. ABDOMEN: There is a fair amount of fecal material throughout mildly dilated loops of colon. There is gas and feces in the rectum. The findings could represent mild constipation. Bilateral hip replacements are identified. There is diffuse osteopenia but no fracture is seen. Disco genic degenerative changes throughout the lumbar spine. Right upper quadrant: There is a calcified gallstone in the right upper quadrant. This was noted on t he previous CT scan. IMPRESSION: 1. Cardiomegaly with hyperinflation of the lungs and prominence the central pulmonary vessels. No fin dings of an infiltrate. 2. There is a fair amount of fecal chest throughout the colon. This raises the possibility of constip ation. 3. Cholelithiasis. 4. Osteopenia without findings of an acute fracture. Bilateral total hip replacements. Report Dictated By: Sujit Elizabeth MD at 05/06/2019 2:11 PM Report E-Signed By: Sujit Elizabeth MD at 05/06/2019 2:16 PM WSN:[id number]
[2019-05-06 14:25] LABS: PLATELET COUNT, AUTOMATED 188 K/uL (150-450)
[2019-05-06 14:38] LABS: INR 1.14
[2019-05-06] MEDS ORDERED: other (16:19)
[2019-05-06] MEDS ORDERED: MAGNESIUM CITRATE 300 ML BTL PO ONE (16:30)
[2019-05-06 18:28] VITALS: BP 148/88
--- NOTE | 2019-05-06 18:39 | EKG ---
FACILITY: [facility] [place] PATIENT NAME: ESTELLA IRELAND : [id number] MR: [id number] V: [id number] EXAM DATE: ORDERING PHYSICIAN: LITO BALES TECHNOLOGIST: Test Reason : s/p nstemi not feeling well Blood Pressure : / mmHG Vent. Rate : 079 BPM Atrial Rate : 079 BPM P-R Int : 134 ms QRS Dur : 130 ms QT Int : 410 ms P-R-T Axes : 065 -49 112 degrees QTc Int : 470 ms Sinus rhythm with premature supraventricular complexes Left axis deviation Left bundle branch block When compared with ECG of 01-MAY-2019 13:47, ST less depressed in Inferior leads Confirmed by Roddy Gibson ([id number]) on 05/06/2019 7:30:16 PM Referred By: Confirmed By:Roddy Diamond
== END 2019-05-06 18:29 | disposition home or self-care (01) ==
LOC: ER 13:20
DX: R53.1 Weakness (principal); N30.01 Acute cystitis with hematuria; K59.00 Constipation, unspecified; I25.2 Old myocardial infarction
CPT/HCPCS: 36415; 71045; 74018; 81001; 84484; 85025; 85610; 85730; 87088; 93005; 99284; A4353; A9270; 82040; 82247; 82310; 82374; 82435; 82565; 82947; 84075; 84132; 84155; 84295; 84450; 84460; 84520

== ENCOUNTER → 2019-05-06 | Outpatient (CLI) | payer MEDICARE ==
[2017-01-27 08:31] VITALS: BMI 27.3
[~2019-05-06] MED LIST changes: +other
== END ==
LOC: AMB 18:19
PROVIDERS: ATTEND Nurse Practitioner
DX: R53.1 Weakness (principal)
CPT/HCPCS: A0425; A0428

== ENCOUNTER → 2019-05-06 | Outpatient (CLI) | payer MEDICARE ==
[2017-01-27 08:31] VITALS: BMI 27.3
== END ==
LOC: AMB 12:51
PROVIDERS: ATTEND Nurse Practitioner
DX: R53.1 Weakness (principal); R45.4 Irritability and anger
CPT/HCPCS: A0425; A0427

== ENCOUNTER 2019-05-24 17:49 | Emergency (ER) | payer MEDICARE ==
[2017-01-27 08:31] VITALS: BMI 27.3
[~2019-05-24 17:49] MED LIST changes: +other
--- NOTE | 2019-05-24 18:04 | ER Report ---
History and Physical Time Seen By MD: 18:02 HPI/ROS CHIEF COMPLAINT: swelling in legs, finger infection, sore on bottom HISTORY OF PRESENT ILLNESS: This is an 84 year old female. She came to the ER tonight because she is having increasing edema in her legs. She takes furosemide 20mg once a day along with potassium. Recently legs are swelling more. She is not short of breath, but does have a mild cough. No chest pain. She states that the Lasix today did not make her urinate much. She took a second dose this afternoon, but also did not work very well. Normally these make her urinate more. She does not like to use compression stockings, and because of the swelling, she would not be able to get any on at this time. She had a urinary tract infection last month, and took Levaquin, and seemed to clear up. She has been on antibiotics for a finger infection in her left index finger, and the redness and swelling seem to have cleared up, but still has some purulent fluid and white patches under the skin over the distal phalanx. No fevers or chills noted. Finger is very painful. She does have a history of gout.She also notes a area on her bottom, new skin breakdown. REVIEW OF SYSTEMS: Constitutional: No fever or chills. Eyes: No vision changes. ENT: No sore throat. No congestion. Cardiovascular: No chest pain. Respiratory: As above. Gastrointestinal: No abdominal pain. No nausea or vomiting. Genitourinary: No dysuria. No frequency Musculoskeletal: As above. Skin: No rashes. As above. Neurological: No numbness. Allergies: Coded Allergies: Sulfa (Sulfonamide Antibiotics) (Verified Allergy, Mild, HIVES, 05/24/19) Home Meds Active Scripts Cefdinir 300 Mg Cap (OMNICEF 300 MG CAP (OR EQUIV)) 300 Mg Cap, 300 MG PO BID, #20 CAP 0 Refills Prov:KOFFI MAR MD 05/24/19 [other] No Conflict Check Patient's Primary Care Provider: Dr. Ivonne Aguilar, Institutional Provider conducted the [id number] encounter. Electronic Undersigning Physician Certifies Home Health. I certify that the patient has been under my care and that I had a niaz-rl-oism encounter that meets the physician [id number] encounter requirements with this patient. This patient is home-bound due to safety issues and continues to require assistance with ADL's. I certify that based on my findings, that Nursing, Aides and the following Home Health services are medically necessary: Prov:LITO BALES CLINICAL DATA ABSTRACTOR-BC 05/06/19 Levofloxacin 500 Mg Tab (LEVAQUIN 500 MG TAB) 500 Mg Tablet, 500 MG PO QDAY@21, #3 TAB Prov:MANJU BRAVO DO 01/28/17 Atenolol (ATENOLOL) 25 Mg Tablet, 12.5 MG PO DAILY, #30 TAB Prov:MANJU BRAVO 01/28/17 Reported Medications Gabapentin (GABAPENTIN) 300 Mg Capsule, 900 MG PO TID, CAPSULE 01/26/17 Melatonin/Pyridoxine Hcl (B6) (MELATONIN 10 MG TABLET) 1 Each Tab.mphase, 1 EACH PO QHS 01/26/17 Pravastatin Sodium (PRAVASTATIN SODIUM) 10 Mg Tablet, 10 MG PO QDAY 01/26/17 Oxygen (OXYGEN) Inha, 2 L INH PRN, L 02/26/16 Ascorbic Acid/Multivit-Min (Emergen-C 1,000 mg Packet) 1,000 Mg Effpowdpkt, 1000 MG PO PRN 02/26/16 Acetaminophen (TYLENOL EXTRA STRENGTH) 500 Mg Tablet, 500 MG PO Q4H PRN for PAIN/HEADACHE, TAB 02/26/16 Mcdowell-3/Dha/Epa/Lut/Zeaxanthin (ADVANCED EYE HEALTH SOFTGEL) 1 Each Capsule, 1 EACH PO BID, CAPSULE 02/26/16 Cholecalciferol (Vitamin D3) (VITAMIN D3) 5,000 Unit Tablet, 5000 UNIT PO DAILY 02/26/16 Isosorbide Mononitrate (ISOSORBIDE MONONITRATE ER) 30 Mg Tab.er.24h, 30 MG PO DAILY 02/26/16 Ubidecarenone (CO Q-10) 200 Mg Capsule, 200 MG PO DAILY, CAPSULE 02/26/16 Vitamin B Complex & Vit C No.4 (SUPER B COMPLEX) 150 Mg Tablet, 150 MG PO DAILY 02/26/16 Levothyroxine Sodium (SYNTHROID) 88 Mcg Tablet, 88 MCG PO QDAY 02/26/16 Docusate Sodium (COLACE) 100 Mg Capsule, 100 MG PO BID, CAPSULE 09/14/13 Estrogens, Conjugated 0.625 Mg/Ml Vag Cream (PREMARIN 0.625 MG/ML VAGINAL CR) 42.5 Gm Cream.appl, 0 VG PRN 09/13/13 Divalproex Sodium (Depakote) 500 Mg Tabcr, 500 MG PO QAM 01/21/13 Folic Acid (Folic Acid) 1 Mg Tab, 1 MG PO QDAY, 0 Refills 01/13/11 Reviewed Nurses Notes: Yes Hx Smoking: Yes (SMOKED 11/18 TO 1 PPD , STARTED AGE 18 AND QUIT 2000(48 YEARS)) Smoking Status: Former Smoker Exposure to Second Hand Smoke?: No Hx Substance Use Disorder: No Hx Alcohol Use: No Constitutional Vital Sign - Last 24 Hours 05/24/19 05/24/19 05/24/19 05/24/19 17:56 18:00 18:02 18:30 Temp 99.0 Pulse 79 ??? 76 Resp 22 B/P (MAP) 172/113 172/113 (132) Pulse Ox 90 92 O2 Delivery Room Air 05/24/19 19:38 B/P (MAP) 180/104 (129) Physical Exam General Appearance: The patient is alert. No acute distress. Non-toxic in appearance. Eyes: Pupils are equal, round. No pallor, injection or icterus. ENT: Mucous membranes are moist. Normal oral mucosa. Neck: Supple and non tender. Respiratory: Lungs are clear to auscultation. Cardiovascular: Regular rate and rhythm. No murmurs, gallops or rubs. Normal capillary refill and peripheral perfusion. Bilateral lower extremity edema, 2+ in the ankles extending to trace mid tibia. No carotid bruits. Gastrointestinal: Abdomen is soft and non tender. Nondistended. Normal active bowel sounds. Neurological: Alert and oriented x3. No focal neurologic deficits Skin: Warm and dry. Has distal phalanx of her right index finger with what appears to be material underneath the skin with a couple of areas of tophaceous gout present. Also has a little bit of skin breakdown along the right gluteal fold. Musculoskeletal: Extremities are otherwise nontender. DIFFERENTIAL DIAGNOSIS: After history and physical exam, differential diagnosis was considered for swelling in legs/peripheral edema which has worsened recently, will do cardiac and renal workup. Finger appears to have been an infection, treated with Augmentin, but with tophaceous gout and also with abscess that needs to be drained and cleaned up. Some skin breakdown on bottom, will need offloading and follow-up. Medical Decision Making Data Points Result Diagram: 05/24/19180205/24/191802 Laboratory Hematology Test 05/24/19 18:03 White Blood Count 6.1 k/uL (4.5-11.0) Red Blood Count 4.40 M/uL (4.17-5.56) Hemoglobin 13.7 g/dL (12.0-16.0) Hematocrit 40.9 % (34.0-47.0) Mean Corpuscular Volume 93.0 fL (80.0-96.0) Mean Corpuscular Hemoglobin 31.1 pg (26.0-33.0) Mean Corpuscular Hemoglobin Concent 33.5 g/dL (32.0-36.0) Red Cell Distribution Width 14.1 % (11.5-14.5) Platelet Count 171 K/uL (150-450) Mean Platelet Volume 8.2 fL (7.2-11.1) Neutrophils (%) (Auto) 62.6 % (39.4-72.5) Lymphocytes (%) (Auto) 20.2 % (17.6-49.6) Monocytes (%) (Auto) 15.5 % (4.1-12.4) H Eosinophils (%) (Auto) 1.1 % (0.4-6.7) Basophils (%) (Auto) 0.6 % (0.3-1.4) Nucleated RBC Relative Count (auto) 0.0 /100WBC Neutrophils # (Auto) 3.8 K/uL (2.0-7.4) Lymphocytes # (Auto) 1.2 K/uL (1.3-3.6) L Monocytes # (Auto) 0.9 K/uL (0.3-1.0) Eosinophils # (Auto) 0.1 K/uL (0.0-0.5) Basophils # (Auto) 0.0 K/uL (0.0-0.1) Nucleated RBC Absolute Count (auto) 0.00 K/uL Chemistry Test 05/24/19 18:03 Sodium Level 140 mmol/L (137-145) Potassium Level 3.9 mmol/L (3.5-5.0) Chloride Level 103 mmol/L (98-107) Carbon Dioxide Level 27 mmol/L (22-31) Blood Urea Nitrogen 16 mg/dl (7-18) Creatinine 0.90 mg/dl (0.52-1.04) Glomerular Filtration Rate Calc 59.7 Random Glucose 128 mg/dl (75-110) Calcium Level 9.3 mg/dl (8.4-10.2) Total Bilirubin 0.4 mg/dl (0.2-1.3) Aspartate Amino Transf (AST/SGOT) 32 U/L (0-35) Alanine Aminotransferase (ALT/SGPT) 31 U/L (0-56) Alkaline Phosphatase 77 U/L (0-126) Troponin I 0.033 ng/ml B-Type Natriuretic Peptide 203 pg/ml (0-100) Total Protein 7.2 g/dl (6.3-8.2) Albumin 3.5 g/dl (3.5-5.0) EKG/Imaging EKG Interpretation 12 lead EKG: Rhythm: Normal sinus rhythm, rate 73 [place]: Left axis deviation QRS: Left bundle branch block, unchanged Imaging EXAMINATION: Chest 2 Views HISTORY: Edema COMPARISON: 05/06/2019. FINDINGS: Mild chronic appearing interstitial changes bilaterally appear grossly stable. No new focal consolidation or pleural effusion. No pneumothorax. Stable cardiomediastinal silhouette with normal heart size and pulmonary vascularity. Aortic calcification. No acute osseous findings. Multilevel degenerative changes along the spine, with a mild thoracolumbar scoliosis. Pectus excavatum. IMPRESSION: No evidence of acute cardiopulmonary disease. Stable exam. Report Dictated By: Blayne Bush MD at 05/24/2019 9:10 PM ED Course/Re-evaluation Clinical Indication for ER IV: IV Access ED Course Evaluation of the finger shows incompletely treated cellulitis because of abscess formation, as well as presence in the gouty areas of the finger. Discussed this with the patient and recommended numbing the finger with a digital block and then draining the abscess and cleaning the area. Discussed risks and benefits of this and patient agreed to go ahead with this. After this was done, started the patient on Omnicef 300 mg twice a day and recommended follow-up with wound care or general surgery for ongoing monitoring and treatment of this wound. Also recommended offloading the skin breakdown on the bottom and doing some soaks in the bathtub as well as bacitracin with gauze. Lower extremity edema was evaluated, it sounds like her furosemide dose is not making her urinate so will increase this to 40 mg and for the next few days do this twice a day as well as the potassium dose twice a day. She will follow-up with her regular doctor. Also recommended doing some compression, and since she will not use the compression stockings, recommended Rickie wraps and keeping her legs elevated. Also reviewed need to reduce salt in diet as well. Procedure: Abscess drainage. The patient's abscess was located on the right index finger. I obtained verbal consent from the patient to drain the abscess who was informed about the possibility of bleeding and pain. Digital block using 1% lidocaine without epinephrine. The abscess was incised with a scalpel and a large amount of purulent drainage was expressed. The finger was scrubbed with Hibiclens and saline. The patient tolerated the procedure well. The procedure was performed by myself. Decision to Disposition Date: May 24, 2019 Decision to Disposition Time: 20:11 Depart Departure Latest Vital Signs Vital Signs Date Time Temp Pulse Resp B/P (MAP) Pulse Ox O2 Delivery O2 Flow Rate FiO2 05/24/19 19:38 180/104 (129) 05/24/19 18:30 76 92 05/24/19 17:56 99.0 22 Room Air Impression: Primary Impression: Peripheral edema Additional Impressions: Cellulitis Decubitus ulcer limited to breakdown of skin (stage 2) Condition: Improved Disposition: HOME OR SELF-CARE Referrals: SURAJ TOMLINSON MD (PCP) New Scripts Cefdinir 300 Mg Cap (OMNICEF 300 MG CAP (OR EQUIV)) 300 Mg Cap 300 MG PO BID, #20 CAP 0 Refills Prov: KOFFI MAR MD 05/24/19 Patient Instructions: Cellulitis (ED), Edema (ED) Additional Instructions: For the finger: Wash with soap and water once a day, dry it and apply antibiotic ointment with a bandage. Take Cefdinir 300mg twice a day for [address] Hazel's office to schedule a follow-up visit with him. For the pressure ulcer and skin breakdown on your bottom: Soak once or twice a day with Sitz bath. Apply a small amount of antibiotic ointment and a gauze pad. Try to avoid pressure in this area by sitting on a pillow or pad with a central cut-out. For the swelling in legs: Take your Furosemide (lasix) 20mg tablets as follows: 2 of the 20mg tablets in the morning (40mg) along with a potassium tablet. 2 of the 20mg tablets in the early afternoon (40mg) along with a potassium tablet. Do this for about 3-5 days, or until the swelling has reduced and then you can go back to just taking the furosemide and potassium in the morning. Use the RICKIE wraps to apply some compression to the lower legs, or use compression stockings. Keep your legs elevated as much as you can. Limit the amount of salt in your diet. Problem Qualifiers Additional Impressions: Cellulitis Site of cellulitis: extremity Site of cellulitis of extremity: finger Laterality: right Qualified Codes: L03.011 - Cellulitis of right finger Decubitus ulcer limited to breakdown of skin (stage 2) Pressure injury location: buttock Laterality: right Qualified Codes: L89.312 - Pressure ulcer of right buttock, stage 2 KOFFI MAR MD May 24, 2019 18:04
--- NOTE | 2019-05-24 18:51 | EKG ---
FACILITY: [facility] PATIENT NAME: ESTELLA IRELAND : [id number] MR: [id number] V: [id number] EXAM DATE: ORDERING PHYSICIAN: KOFFI MAR TECHNOLOGIST: VALENTINO Test Reason : SWOLLEN LEGS/ FEET Blood Pressure : / mmHG Vent. Rate : 073 BPM Atrial Rate : 073 BPM P-R Int : 144 ms QRS Dur : 136 ms QT Int : 412 ms P-R-T Axes : 070 -30 092 degrees QTc Int : 453 ms Sinus rhythm Probable biatrial enlargement Left axis deviation Left bundle branch block Abnormal ECG Confirmed by SERA HWANG ([id number]) on 05/25/2019 5:46:36 AM Referred By: EDUARDO Confirmed By:SERA HWANG
[2019-05-24 18:57] LABS: PLATELET COUNT, AUTOMATED 171 K/uL (150-450)
[2019-05-24 19:38] VITALS: BP 180/104
[2019-05-24] MEDS ORDERED: CEF300 PO (20:21)
--- NOTE | 2019-05-24 21:17 | RADIOLOGY IMAGING REPORT ---
FACILITY: PATIENT NAME: Cecilia Craig : 1935 MR: [id number] V: [id number] EXAM DATE: ORDERING PHYSICIAN: KOFFI MAR TECHNOLOGIST: Location: [facility] Patient: Cecilia Craig : 1935 Visit/Account:[id number] Date of Sevice: 05/24/2019 EXAMINATION: Chest 2 Views HISTORY: Edema COMPARISON: 05/06/2019. FINDINGS: Mild chronic appearing interstitial changes bilaterally appear grossly stable. No new focal consolida tion or pleural effusion. No pneumothorax. Stable cardiomediastinal silhouette with normal heart size and pulmonary vascularity. Aortic calcific ation. No acute osseous findings. Multilevel degenerative changes along the spine, with a mild thoracolumbar scoliosis. Pectus excavatum. IMPRESSION: No evidence of acute cardiopulmonary disease. Stable exam. Report Dictated By: Blayne Bush MD at 05/24/2019 9:10 PM Report E-Signed By: Blayne Bush MD at 05/24/2019 9:11 PM WSN:[id number]
== END 2019-05-24 20:52 | disposition home or self-care (01) ==
LOC: ER 18:15
DX: R60.0 Localized edema (principal); L03.011 Cellulitis of right finger; L89.312 Pressure ulcer of right buttock, stage 2
CPT/HCPCS: 71046; 82040; 82247; 82310; 82374; 82435; 82565; 82947; 83880; 84075; 84132; 84155; 84295; 84450; 84460; 84484; 84520; 85025; 87040; 87070; 93005; 99284

== ENCOUNTER → 2019-05-31 | Outpatient (CLI) | payer MEDICARE ==
[2017-01-27 08:31] VITALS: BMI 27.3
[~2019-05-31] MED LIST changes: +CEF300 PO; +COLC0.6C3 PO; +NITR-57 PO
--- NOTE | 2019-05-31 16:09 | RADIOLOGY IMAGING REPORT ---
FACILITY: [facility] PATIENT NAME: Cecilia Craig : 1935 MR: [id number] V: [id number] EXAM DATE: ORDERING PHYSICIAN: CHAD CHANG TECHNOLOGIST: Location: [facility] [place] Patient: Cecilia Craig : 1935 Visit/Account:[id number] Date of Sevice: 05/31/2019 Right second finger, three views. HISTORY: Erythema, edema. COMPARISON: None. Moderate periarticular soft tissue swelling is present at the second DIP joint. Small to moderate si ze marginal osteophytes,, small subchondral cysts, moderate to severe joint space narrowing, and diann articular dystrophic calcifications are present in multiple wrist, hand, and finger joints, most prom inent in the second DIP joint and the first carpal-metacarpal joint. No acute fractures. 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 Superimposed sepsis of the second DIP joint is not excluded. Report Dictated By: Cristiano Scanlon MD at 05/31/2019 3:58 PM Report E-Signed By: Cristiano Scanlon MD at 05/31/2019 4:02 PM WSN:[id number]
== END ==
LOC: RAD 15:13
PROVIDERS: ATTEND Surgery
DX: M15.4 Erosive (osteo)arthritis (principal)

== ENCOUNTER → 2019-06-13 | Outpatient (REF) | payer MEDICARE ==
[2017-01-27 08:31] VITALS: BMI 27.3
== END ==
LOC: ZZSENDIN 12:00
PROVIDERS: ATTEND Orthopaedic Surgery Hand Surgery
DX: M11.261 Other chondrocalcinosis, right knee (principal)
CPT/HCPCS: 88304